=== PATIENT | female | born 1980 | race Caucasian/White ===

== ENCOUNTER 2017-08-25 01:53 | Emergency (ER) | payer SELFPAY ==
[~2017-08-25] VITALS: Ht 170.2 cm; Wt 52.3 kg
[~2017-08-25 01:53] MED LIST: BENZ100 PO; MOME17I; OMEP20TA PO; TRI-TAB PO; ZITH250T PO
[2017-08-25 02:00] VITALS: BP 126/79; PULSE 105; RESP 18; TEMP 98.2; O2SAT 97
[2017-08-25 02:19] VITALS: BP 126/79; PULSE 105; RESP 20; TEMP 98.2
--- NOTE | 2017-08-25 02:26 | PD ---
HPI Chief Complaint: Laceration/Skin Injury Time Seen by Provider: 02:25 Travel History International Travel<30 days: No Contact w/Intl Traveler<30days: No Traveled to known affect area: No History of Present Illness HPI 37-year-old female came to the emergency room after injuring her right hand. Patient says that she had been drinking last night and was walking back to her bedroom when she tripped. She lives in a trailer and she went to reach out for the window which broke and caused her right middle finger to cut. Patient had some bleeding. She came to the emergency room. She says that she knows she needs stitches but she was very anxious because she's never had stitches or any surgeries before. Patient denies hitting her head. She says her last tetanus shot but was within 5 years. PFS Past Medical History Narrative Medical List of her past medical, surgical, social and family history is reviewed from the nursing note. Tetanus Vaccination: < 5 Years Influenza Vaccination: No ?: Unknown LMP: 08/18/2017 Social History Alcohol Use: Yes (2 drinks per day, 08/25/2017) Tobacco Use: Yes (0.5 PPD) Substance Use: No Allergies-Medications (Allergen,Severity, Reaction): Coded Allergies: penicillin G (Unverified Allergy, Unknown, 02/25/17) Pt states she had reaction when young and does not know what kind of reaction it was. Comments List of her allergies reviewed from the nursing note. Reported Meds & Prescriptions Reported Meds & Active Scripts Active Bacitracin Topical 500 Unit/Gm Oint 1 Applic TOPICAL BID Keflex (Cephalexin) 500 Mg Cap 500 Mg PO Q8H 7 Days Tri-Sprintec (Ethinyl Estradiol/Norgestimate) 1 Tab Tab 1 Tab PO DAILY Zithromax Z-Subhash (Azithromycin) 250 Mg Tab 250 Mg PO DIRECTED 500 MG (2 TABLETS) PO ON DAY 1, THEN 250 MG (1 TABLET) PO ON DAYS 2 TO 5. Nasonex (Mometasone Furoate) 50 Mcg/Ac Spr 2 [place] NA DAILY SPRAY IN EACH NOSTRIL Tessalon Perles (Benzonatate) 100 Mg Cap 100 Mg PO TID Omeprazole 20 mg (Omeprazole) 20 Mg Tab 1 Tab PO DAILY Narrative Medication List of her home medications reviewed from the nursing note. Review of Systems Except as stated in HPI: all other systems reviewed are Neg Physical Exam Narrative GENERAL: Awake, moderately intoxicated, anxious and tearful SKIN: Focused skin assessment warm/dry. Right middle finger extensor surface on her knuckle there is a 3 cm laceration. The tendon is intact. On the middle phalanx there is a 2 cm x 1 cm deep avulsion of the skin down to the dermis. The bleeding is controlled. Good extension of the right middle finger against resistance. HEAD: Atraumatic. Normocephalic. EYES: Pupils equal and round. No scleral icterus. No injection or drainage. ENT: No nasal bleeding or discharge. Mucous membranes pink and moist. NECK: Trachea midline. No JVD. CARDIOVASCULAR: Regular rate and rhythm. No murmur appreciated. RESPIRATORY: No accessory muscle use. Clear to auscultation. Breath sounds equal bilaterally. GASTROINTESTINAL: Abdomen soft, non-tender, nondistended. Hepatic and splenic margins not palpable. MUSCULOSKELETAL: No obvious deformities. No clubbing. No cyanosis. No edema. NEUROLOGICAL: Awake and alert. No obvious cranial nerve deficits. Motor grossly within normal limits. Normal speech. PSYCHIATRIC: Appropriate mood and affect; insight and judgment normal. Data Data Last Documented VS Vital Signs Date Time Temp Pulse Resp B/P (MAP) Pulse Ox O2 Delivery O2 Flow Rate FiO2 08/25/17 03:44 08/25/17 02:21 20 08/25/17 02:19 98.2 105 08/25/17 02:00 97 Orders Orders Lidocaine Pf 1% Inj (Xylocaine-Mpf 1% In (08/25/17 02:30) Hand, Complete ([id number]) (08/25/17 ) Cephalexin (Keflex) (08/25/17 02:30) Ed Discharge Order (08/25/17 03:27) [facility] Medical Decision Making Medical Screen Exam Complete: Yes Emergency Medical Condition: Yes Medical Record Reviewed: Yes Differential Diagnosis Laceration, foreign body Narrative Course 2:52 AM the laceration was repaired by me. Please refer to my procedure note. Dressing was done by the nurse. Patient was given a dose of Keflex. She'll be discharged home on antibiotic. The x-ray did not show any fracture or foreign body. Procedures Procedure Narrative LACERATION LOCATION: Right middle finger knuckle LENGTH: 3 cm NUMBER OF STITCHES/ARCHANA: 7 stitches REPAIR: The area of the laceration was prepped with Betadine and sterilely draped. The laceration was infiltrated with 1% lidocaine 7 mL. The wound was copiously irrigated and explored without evidence of foreign body, tendon injury or neurovascular injury. The wound was closed using 4-0 Ethilon. This was a single layer repair. A sterile dressing was applied. The patient was advised to keep the dressing clean and dry. Patient tolerated the procedure well. EKG Prior to Arrival: No Diagnosis Primary Impression: Finger laceration Qualified Codes: S61.212A - Laceration without foreign body of right middle finger without damage to nail, initial encounter Additional Impressions: Skin avulsion Acute alcohol intoxication Qualified Codes: F10.929 - Alcohol use, unspecified with intoxication, unspecified Referrals: Primary Care Physician Additional Instructions: Please return to the ER in 7-10 days to have the stitches taken out. Keep the wound clean and dry for next 48-72 hours. Take the medication as per the prescription direction. Return earlier if there are any signs of infection or any other concerns. You should drink alcohol in moderation. Apply the ointment twice a day on the wounds until the stitches come out. Med/Other Pt SpecificInfo: Prescription(s) given Scripts Bacitracin Topical (Bacitracin Topical) 500 Unit/Gm Oint 1 APPLIC TOPICAL BID for Infection, #30 GM 0 Refills Prov: Vignesh Griffith MD 08/25/17 Cephalexin (Keflex) 500 Mg Cap 500 MG PO Q8H for Infection for 7 Days, #21 CAP 0 Refills Prov: Vignesh Griffith MD 08/25/17 Disposition: 01 DISCHARGE HOME Condition: Stable Vignesh Griffith MD Aug 25, 2017 02:26
[2017-08-25] MEDS ORDERED: CEPHALEXIN MONOHYDRATE 500 MG CAP PO ONE (02:30)
[2017-08-25] MEDS ORDERED: LIDOCAINE HCL 1% PF 10 ML VIAL INFIL ONE (02:30)
--- NOTE | 2017-08-25 02:51 | RADRPT ---
EXAM DATE/TIME: 08/25/2017 02:34 [place] COMPARISON: No previous studies available for comparison. INDICATIONS : Right hand pain and laceration. Patient states she put her hand through a window. MEDICAL HISTORY : None. SURGICAL HISTORY : None. ENCOUNTER: Initial ACUITY: 1 day PAIN SCORE: 9/10 LOCATION: Right hand. FINDINGS: Three view examination of the right hand demonstrates no soft tissue swelling, dislocation, or fractu re. The carpal bones appear intact. The interphalangeal and metacarpophalangeal joints are intact. Bony mineralization is normal. CONCLUSION: No fractures are seen. There is a dorsal laceration and soft tissue swelling seen on the lateral view overlying the MCP joints. Carlos Marino MD on August 25, 2017 at 2:48 Board Certified Radiologist. This report was verified electronically.
[2017-08-25] MEDS ORDERED: CEPH-460 PO (02:54)
[2017-08-25] MEDS ORDERED: BACI500O9 TOPICAL (03:28)
== END 2017-08-25 03:51 | disposition home or self-care (01) ==
LOC: PHED 01:53
DX: S61.212A Laceration without foreign body of right middle finger without damage to nail, initial encounter (principal); W01.110A Fall on same level from slipping, tripping and stumbling with subsequent striking against sharp glass, initial encounter; Y92.029 Unspecified place in mobile home as the place of occurrence of the external cause; F10.129 Alcohol abuse with intoxication, unspecified; F17.210 Nicotine dependence, cigarettes, uncomplicated
CPT/HCPCS: 12002; 73130